=== PATIENT | female | born 1960 | race Caucasian/White ===

== ENCOUNTER → 2016-08-06 | Outpatient (CLI) | payer OTHER ==
--- NOTE | 2016-08-06 17:05 | MA ---
Screening Digital Mammogram With iCAD Analysis Clinical Indications: Routine screening. Patient has had right breast cancer treated with mastectomy. Technique: Standard cephalocaudal projection is obtained. Digital breast tomosynthesis was performed in the MLO projection with reconstruction at 1.0 mm slice thickness and composite MLO view reconstruc kristel. This examination is processed by the iCAD computer aided detection system. Comparison: March 2015, November 2013, February 2013, December 2011. Breast density: Type B; Scattered fibroglandular densities. Findings: CAD was reviewed. No masses, suspicious calcifications or secondary signs of malignancy are seen. There has been no significant change in the appearance of the left breast. Impression: Negative mammogram. BI-RADS 1. Recommendation: Routine mammographic screening in one year as long as physical examination is [facility]ativ [facility]. Negative mammography should not preclude additional workup of a clinically suspicious finding. The patient's information is entered into a reminder system with a target due date for her next mammo gram.
== END ==
LOC: FIMAGING 12:59
DX: Z12.31 Encounter for screening mammogram for malignant neoplasm of breast (principal); Z85.3 Personal history of malignant neoplasm of breast; Z90.11 Acquired absence of right breast and nipple
CPT/HCPCS: G0202-52

== ENCOUNTER → 2016-10-08 | Outpatient (CLI) | payer OTHER | LOC: BRMIMAGING 16:50 | PROVIDERS: ATTEND Internal Medicine Pulmonary Disease | DX: I51.7 Cardiomegaly (principal); I27.2 Other secondary pulmonary hypertension; J84.9 Interstitial pulmonary disease, unspecified | CPT/HCPCS: 71020-PO ==

== ENCOUNTER → 2017-01-10 | Outpatient (CLI) | payer OTHER | LOC: FIMAGING 14:19 | PROVIDERS: ATTEND Obstetrics & Gynecology Gynecology | DX: R10.2 Pelvic and perineal pain (principal) ==

== ENCOUNTER → 2017-01-29 | Outpatient (CLI) | payer OTHER | LOC: FIMAGING 15:07 | PROVIDERS: ATTEND Family Medicine | DX: R31.9 Hematuria, unspecified (principal) ==

== ENCOUNTER 2017-03-21 07:30 | Day surgery (SDC) | payer OTHER ==
[2017-03-21] MEDS ORDERED: methylPREDNISolone SOD SUCC 125 MG/2 ML VIAL IVP ONE (07:33)
[2017-03-21] MEDS ORDERED: ASPIRIN EC 325 MG TAB PO ONE (07:33)
[2017-03-21] MEDS ORDERED: NS 1,000 ML IV ONE (07:33)
[2017-03-21] MEDS ORDERED: FAMOTIDINE 20 MG/NACL 50 ML IV ONE (07:33)
[2017-03-21] MEDS ORDERED: DIAZEPAM 5 MG TAB PO ONE (07:33)
--- NOTE | 2017-03-21 07:55 | CPEKG ---
Heart Rate: 89 RR Interval: 674 P-R Interval: 188 QRSD Interval: 82 QT Interval: 376 QTC Interval: 458 P Av[place]: 39 QRS [place]: 75 T Wave [place]: 36 EKG Severity - NORMAL ECG - EKG Impression: SINUS RHYTHM Electronically Signed By: Ryder Guadalupe 21-Mar-2017 12:24:53
[2017-03-21 08:02] VITALS: BP 167/104; RESP 12
[2017-03-21 08:14] LABS: % IMMATURE GRANULYOCYTES 0.2 % (0.0-1.1); ABSOLUTE IMMATURE GRANULOCYTES 0.02 10^3/uL (0.00-0.10); ADD DIFF? NO; ADD MORPH? NO; ADD SCAN? NO; ATYPICAL LYMPHOCYTE FLAG 20 (0-99); FRAGMENT RBC FLAG 20 (0-99); HEMATOCRIT 39.2 % (38.0-47.0); HEMOGLOBIN 12.9 g/dL (12.6-16.3); LEFT SHIFT FLG 0 (0-99); LIPEMIA HEMOLYSIS FLAG 80 (0-99); MEAN CELL HEMOGLOBIN 30.4 pg (27.9-34.1); MEAN CELL HEMOGLOBIN CONCENTR. 32.9 g/dL (32.4-36.7); MEAN CELL VOLUME 92.2 fL (81.5-99.8); MEAN PLATELET VOLUME 9.4 fL (8.7-11.7); PLATELET CLUMPS FLAG 0 (0-99); PLATELET COUNT 288 10^3/uL (150-400); RED BLOOD CELL COUNT 4.25 10^6/uL (4.18-5.33); RED CELL DISTRIBUTION WIDTH 13.3 % (11.5-15.2)
[2017-03-21 08:25] LABS: INR 0.93 (0.83-1.16); PROTIME(PATIENT) 12.4 SEC (12.0-15.0)
--- NOTE | 2017-03-21 08:26 | PDPROPOC ---
Sedation Plan of Care Sedation Plan of Care: vital signs stable, mental status noted, patient educated of risks, benefits, alternatives, patient can tolerate sedation ASA Classification: ASA 2 Planned drugs: midazolam Mallampati Score: Class 2 Mallampati Reference Image: Patient passed 3-3-2 rule?: Yes
--- NOTE | 2017-03-21 08:26 | PDHPUP ---
History & Physical Update H&P update statement: This history and physical update is based on an assessment of the patient which was completed after admission or registration (within 24 hours), but prior to the surgery/procedure. H&P update: H&P reviewed & patient examined, no change in patient's condition since H&P completed
[2017-03-21] MEDS ORDERED: LIDOCAINE 1% 300 MG/30 ML SDV ONE (08:33)
[2017-03-21] MEDS ORDERED: fentaNYL 100 MCG/2 ML INJ ONE (08:34)
[2017-03-21] MEDS ORDERED: IOPAMIDOL (ISOVUE-370) 150 ML BTL IV ONE (08:34)
[2017-03-21] MEDS ORDERED: MIDAZOLAM 2 MG/2 ML VIAL ONE (08:34)
[2017-03-21 08:36] LABS: ANION GAP 12 mEq/L (8-16); CALCIUM 9.5 mg/dL (8.5-10.4); CARBON DIOXIDE 22 mEq/l (22-31); CHLORIDE 107 mEq/L (97-110); CHOLESTEROL 212 mg/dL (140-220); CHOLESTEROL/HDL RATIO 2.23 RATIO (1.00-4.44); CREATININE 0.7 mg/dL (0.6-1.0); GLOMERULAR FILTRATION RATE > 60; GLUCOSE 96 mg/dL (70-100); HIGH DENSITY LIPOPROTEIN 95 mg/dL (40-85); LDL/HDL RATIO 1.03 RATIO (1.00-3.22); LOW DENSITY LIPOPROTEIN 98 mg/dL (80-100); MAGNESIUM 1.7 mg/dL (1.6-2.3); NON-HIGH DENSITY LIPOPROTEIN 117 mg/dL (90-129); POTASSIUM 4.2 mEq/L (3.5-5.2); SODIUM 141 mEq/L (134-144); TRIGLYCERIDE 96 mg/dL (35-135); VERY LOW DENSITY LIPOPROTEINS 19 mg/dL (8-25)
[2017-03-21] MEDS ORDERED: ONDANSETRON 4 MG/2 ML VIAL IVP PRN (11:08)
[2017-03-21] MEDS ORDERED: NITROGLYCERIN 0.4 MG BTL SL PRN (11:08)
[2017-03-21] MEDS ORDERED: ATROPINE SULFATE 1 MG/10 ML SYR IVP PRN (11:08)
[2017-03-21] MEDS ORDERED: ALBUTEROL 60 PUFFS/8 GM MDI IH PRN (11:09)
[2017-03-21] MEDS ORDERED: HYDROCODONE/APAP 5/325 TAB PO PRN (11:09)
[2017-03-21] MEDS ORDERED: DICLOFENAC SODIUM 1% 100 GM GEL TP PRN (11:09)
[2017-03-21] MEDS ORDERED: ACETAMINOPHEN 325 MG TAB PO PRN (11:09)
--- NOTE | 2017-03-21 11:19 | CPIP ---
[f rep st] INVASIVE CARDIAC PROCEDURE DATE OF PROCEDURE: 03/21/2017 PROCEDURE: 1. Coronary angiography. 2. Left ventriculography. 3. Right heart catheterization. INDICATION: 1. Dyspnea on exertion, concerning for an anginal equivalent. 2. Abnormal exercise physiology study with ST-segment depression. ACCESS: Patient was prepped and draped in sterile fashion. 1% lidocaine was used to anesthetize the right inguinal region. A 6-[place] Islander introducer sheath was placed selectively into the right common fe moral artery via modified Seldinger technique. A 7-[place] introducer sheath was placed selectively i nto the right common femoral vein via modified Seldinger technique. CORONARY ANGIOGRAPHY: A 6-[place] Island[place] JL4 was advanced to the left main coronary artery and images obtain ed. The left main coronary artery bifurcated into an LAD and circumflex coronary arteries. The left main coronary artery appeared normal. The left anterior descending coronary artery gave rise to 1 p rominent diagonal branch. The left anterior descending coronary artery and its diagonal branch appea red normal. The circumflex coronary artery was a large vessel and was dominant. The circumflex ottoniel nary artery gave rise to 2 large branching OM arteries. The circumflex coronary artery and its compl ement of OM arteries appeared normal. A 6-[place] no-torque right catheter was advanced to the right coronary artery and images obtained. The right coronary artery was nondominant. The right coronary artery appeared normal. LEFT VENTRICULOGRAPHY: A 6-[place] pigtail catheter was advanced in the left ventricle and images obt ained. Left ventricle was normal size and had hyperdynamic systolic function. Estimated ejection fr action was 70%. Left ventricular end-diastolic pressure was 22 mmHg. Evidence of a patent ductus ar teriosus could be seen with contrast going from the aorta to the pulmonary artery late in the left ve ntriculogram. RIGHT HEART CATHETERIZATION: A right heart catheter was advanced in the right atrium and pressure ob tained. The right atrial pressure was 15 mmHg. Multiple attempts were made at trying to get the cat heter to advance across the tricuspid valve into the right ventricle, these were unsuccessful. It wa s decided to halt the procedure at this time. Would consider a repeat right heart catheterization fr om the IJ approach. COMPLICATIONS: None. CONCLUSIONS: 1. Normal coronary arteries. 2. Normal left ventricular size and systolic function. 3. Elevated left ventricular end-diastolic pressure at 22 mmHg. 4. Consider right heart catheterization from internal jugular approach. /[id number]/MODL
[2017-03-22] MEDS ORDERED: ASCORBIC ACID 500 MG TAB PO SCH (09:00)
[2017-03-22] MEDS ORDERED: CHOLECALCIFEROL VIT D3 1,000 UNITS TAB PO SCH (09:00)
[2017-03-22] MEDS ORDERED: THYROID 60 MG TAB PO SCH (09:00)
== END 2017-03-21 13:57 | disposition home or self-care (01) ==
LOC: FCATH 07:30
PROVIDERS: ATTEND Internal Medicine Cardiovascular Disease
PROC: B2151ZZ Fluoroscopy of Left Heart using Low Osmolar Contrast (ICD-10-PCS; principal; 2017-03-21)
PROC: B2111ZZ Fluoroscopy of Multiple Coronary Arteries using Low Osmolar Contrast (ICD-10-PCS; principal; 2017-03-21)
PROC: 4A023N8 Measurement of Cardiac Sampling and Pressure, Bilateral, Percutaneous Approach (ICD-10-PCS; principal; 2017-03-21)
DX: R06.09 Other forms of dyspnea (principal); Q25.0 Patent ductus arteriosus; I34.0 Nonrheumatic mitral (valve) insufficiency; M79.7 Fibromyalgia; F41.8 Other specified anxiety disorders; K21.9 Gastro-esophageal reflux disease without esophagitis; I10 Essential (primary) hypertension; Z85.3 Personal history of malignant neoplasm of breast
CPT/HCPCS: 93005; 93458; C1769; C1760; J1200; J1644; J2250; J3010; Q9967

== ENCOUNTER 2017-06-20 10:33 | Emergency (ER) | payer OTHER ==
[2017-06-20] MEDS ORDERED: ACETAMINOPHEN 500 MG TAB PO ONE (10:48)
[2017-06-20] MEDS ORDERED: BENZONATATE 100 MG CAP PO ONE (10:48)
[2017-06-20 10:52] VITALS: PULSE 101; RESP 18; TEMP 98.8; O2SAT 94
--- NOTE | 2017-06-20 10:57 | EDPHY ---
H & P Time Seen by Provider: 06/20/17 10:38 HPI/ROS: HPI Cough, flu-like symptoms. 56-year-old female. She works as a cath laboratory technician. [place] Complaint of dry, nonproductive cough, nasal congestion with clear rhinorrhea, sore throat associated with the cough, muscle aches and joint aches, fatigue, and subjective fever. Onset yesterday. She reports she has been vaccinated for influenza. ROS: Constitutional: As above, no chills. Eyes: No discharge. No changes in vision. ENT: As above. Nasal congestion with clear rhinorrhea. Respiratory: As above. No shortness of breath. Cardiac: No chest pain, no palpitations. Gastrointestinal: No abdominal pain, no vomiting, no diarrhea. Genitourinary: No hematuria. No dysuria or increased frequency with urination. Musculoskeletal: As above. Skin: No rashes. Neurological: No headache. No focal weakness or altered sensation. Past medical history: Hypothyroid, she is having knee surgery early next week. She cannot take NSAIDs or other antiplatelet agents because of this. She had clean coronary arteries and coronary angiogram in March of this year. Social history: Nonsmoker, here by herself. No alcohol. Physical Exam: General Appearance: Alert, no distress. This patient is responding to questions appropriately and in full sentences. This patient appears well- hydrated and well-nourished. Eyes: Pupils equal and round no pallor or injection. No lid edema, erythema or injection. ENT, Mouth: Mucous membranes are moist. The pharyngeal tissues are unremarkable except for some mild posterior pharyngeal erythema. No edema or swelling. No asymmetry suggestive of abscess. No exudates. Respiratory: There are no retractions, lungs are clear to auscultation with good air movement bilaterally. Cardiovascular: Regular rate and rhythm. No murmur. Neurological: Motor sensory function is grossly intact. Cranial nerves are normal. Gait is normal. Skin: Warm and dry, no rashes. Musculoskeletal: Neck is supple and nontender. No cervical, submental, submandibular lymphadenopathy. Extremities are symmetrical. All joints range without pain or impingement. Psychiatric: No agitation. No depression. Database: EKG: Imaging: Chest x-ray PA and lateral; the cardiac mediastinal silhouette is unremarkable. No evidence of infiltrate or pneumothorax. No acute cardiopulmonary disease process noted. Interpreted by me. Procedures: Emergency department course: Vital signs reviewed. The patient has a contraindication to NSAIDs at this time secondary to planned surgery next week. She was given a g of Tylenol. She was given 200 mg of Tessalon Perle. She requests an influenza test to be done so she can notify her surgical staff. I explained that her diagnosis is consistent with influenza and if the rapid test is negative we should consider treating any way. She endorses. 11:25 a.m., patient re-evaluated. Resting comfortably at this time. Results of her chest x-ray and flu assay were discussed with her. She feels comfortable going home and I feel she is safe for discharge. I will not treat her for influenza at this time. For influenza PCR assays positive we will call in a prescription for her. The patient endorses this plan. Follow-up was discussed with her. Supportive care discussed. Return to emergency department precautions thoroughly reviewed. All of her questions were answered. She was discharged in good condition. Differential Diagnosis: The differential diagnosis on this patient includes but is not limited to influenza, viral syndrome. Pneumonia, other serious bacterial infection unlikely. This represents a partial list of diagnoses considered. These considerations are based on history, physical exam, past history, reassessment and diagnostic testing. Smoking Status: Former smoker Constitutional: Initial Vital Signs Temperature (C) 37.1 C 06/20/17 10:46 Heart Rate 101 H 06/20/17 10:46 Respiratory Rate 18 06/20/17 10:46 Blood Pressure 150/120 H 06/20/17 10:46 O2 Sat (%) 94 06/20/17 10:46 O2 Delivery Mode Room Air Allergies/Adverse Reactions: contrast ct dye Allergy (Unknown, Uncoded 03/14/17 17:45) Dyspnea Home Medications: Medication Instructions Recorded Acetaminophen [Tylenol 325mg (*)] 325 mg PO DAILY PRN 03/21/17 Albuterol [Proventil Inhaler HFA 1 - 2 puffs IH DAILY PRN 03/21/17 (*)] Ascorbic Acid [Vitamin C 500 mg 1,000 mg PO DAILY 03/21/17 (*)] Cholecalciferol Vit D3 [Vitamin D3 500 - 1,000 units PO DAILY 03/21/17 (*)] Herbals/Supplements -Info Only 1 ea PO DAILY 03/21/17 Thyroid [[place] Thyroid 60 MG (*)] 90 mg PO DAILY 03/21/17 Albuterol [Proventil Inhaler HFA 1 - 2 puffs IH Q4H PRN #1 mdi 06/20/17 (*)] Benzonatate [Tessalon Pearles] 100 mg PO TID #12 cap 06/20/17 Medical Decision Making - Diagnostics Imaging Results: Imaging Impressions Chest X-Ray 06/20/17 10:47 Impression: No pneumonia or pulmonary nodule. Mild airways disease similar to October 2016. - Data Points Laboratory Results: 06/20/17 06/20/17 10:55 10:55 Nasal Influenza A PCR Pending Nasal Influenza B PCR Pending Influenza A,B Rapid NEGATIVE FOR FLU (NEGATIVE) Medications Given: Discontinued Medications Acetaminophen (Tylenol) 1,000 mg PO EDNOW ONE Stop: 06/20/17 10:49 Last Admin: 06/20/17 11:00 Dose: 1,000 mg Benzonatate (Tessalon Pearles) 200 mg PO EDNOW ONE Stop: 06/20/17 10:49 Last Admin: 06/20/17 11:02 Dose: 200 mg Departure - Departure Disposition: Home, Routine, Self-Care Clinical Impression: Viral syndrome, Bronchitis Condition: Good Instructions: Acute Bronchitis (ED), Viral Syndrome (ED) Additional Instructions: Read and follow provided instructions. Follow-up with your primary care physician in 2-3 days for re-evaluation as needed. Take medication as prescribed for cough. You can also use [id number] NyQuil as directed at night as a decongestant and to help you sleep at night. Keep well hydrated. Drink lots of fluids. No strenuous activity until better. Return to the emergency department for worsening symptoms, worsening cough, high fever, difficulty breathing, vomiting or other serious concerns. Referrals: Rae Stearns [Primary Care Provider] - As per Instructions Prescriptions: Albuterol [Proventil Inhaler HFA (*)] 1 - 2 puffs IH Q4H PRN #1 mdi PRN Reason: Short Of Breath/Dyspnea Benzonatate [Tessalon Pearles] 100 mg PO TID #12 cap
[2017-06-20 11:38] VITALS: BP 126/87
== END 2017-06-20 11:48 | disposition home or self-care (01) ==
LOC: CED 10:33
DX: B34.9 Viral infection, unspecified (principal); J40 Bronchitis, not specified as acute or chronic; Z87.891 Personal history of nicotine dependence
CPT/HCPCS: 71020-PO; 87400-PO

== ENCOUNTER → 2017-09-29 | Outpatient (CLI) | payer OTHER | LOC: CIMAGING 18:14 | PROVIDERS: ATTEND Psychiatry & Neurology Neurology | DX: M50.31 Other cervical disc degeneration, high cervical region (principal); M43.12 Spondylolisthesis, cervical region; M53.87 Other specified dorsopathies, lumbosacral region; M43.17 Spondylolisthesis, lumbosacral region | CPT/HCPCS: 72050-PO; 72100-PO ==

== ENCOUNTER → 2017-10-10 | Outpatient (CLI) | payer OTHER | LOC: FIMAGING 11:44 | PROVIDERS: ATTEND Internal Medicine Hematology & Oncology | DX: Z12.31 Encounter for screening mammogram for malignant neoplasm of breast (principal); Z90.11 Acquired absence of right breast and nipple ==

== ENCOUNTER → 2018-01-16 | Outpatient (CLI) | payer OTHER | LOC: BRMIMAGING 15:31 | PROVIDERS: ATTEND Family Medicine | DX: M25.551 Pain in right hip (principal) | CPT/HCPCS: 73502-PO ==

== ENCOUNTER → 2018-01-29 | Outpatient (CLI) | payer OTHER | LOC: BRMIMAGING 13:05 | PROVIDERS: ATTEND Internal Medicine Rheumatology | DX: M19.041 Primary osteoarthritis, right hand (principal); M19.042 Primary osteoarthritis, left hand; M19.071 Primary osteoarthritis, right ankle and foot; M19.072 Primary osteoarthritis, left ankle and foot; M20.11 Hallux valgus (acquired), right foot; M20.12 Hallux valgus (acquired), left foot | CPT/HCPCS: 73120-PO; 73630-PO ==

== ENCOUNTER → 2018-09-08 | Outpatient (CLI) | payer OTHER ==
[~2018-09-08] MED LIST: GADOBUTROL 10 ML VIAL IVP ONE
== END ==
LOC: FIMAGING 13:52
DX: R90.89 Other abnormal findings on diagnostic imaging of central nervous system (principal); R51 Headache
CPT/HCPCS: A9585

== ENCOUNTER → 2018-10-21 | Outpatient (CLI) | payer OTHER | LOC: FIMAGING 12:01 | PROVIDERS: ATTEND Neurological Surgery | DX: R93.0 Abnormal findings on diagnostic imaging of skull and head, not elsewhere classified (principal) ==

== ENCOUNTER 2018-12-10 12:05 | Observation (INO) | payer OTHER | END 2018-12-11 15:24 | disposition home or self-care (01) | LOC: FSGY 12:05 → F3E 14:54 → F3N 18:40 ==